=== PATIENT | male | born 1985 | race Caucasian/White ===

== ENCOUNTER 2022-10-07 12:50 | Emergency (ER) | payer BC ==
--- OUTSIDE RECORDS SUMMARY | 2022-10-07 12:54 | XMS REPORT | Continuity of Care Document ---
:1985 Author Organization [facility] t Address [address] [place] [address] Care Team Providers Name Role Phone DELORES GILMAN Primary Care Physician Unavailable HENNA MADRIGAL Attending Clinician Unavailable Henna Desir Attending Clinician [facility] Attending Clinician Unavailable KOFFI MONTES Attending Clinician Unavailable Payers Payer Name Policy Type Policy Number Effective Date Expiration Date S [place]a [place] [id number] 2020 00:00:00 OUT OF STATE Problems Condition Condition Condition Status Onset Resolution Last Treating Co mments Source Name Details Category Date Date Treatment Clinician Date No known No known Disease Unive rs active active ity of problems problems [place] [facility] Allergies, Adverse Reactions, Alerts Allergy Allergy Status Severity Reaction(s) Onset Inactive Treating Comm ents Source Name Type Date Date Clinician SULFA Drug Active Rash 2021-08 Univers (SULFONA Class 1-05 ity of MIDE 00:00: [place] ANTIBIOT 00 Medical ICS) Branch Sulfa Propensi Active Rash 2021-08 Univers (Sulfona ty to 1-05 ity of mide adverse 00:00: [place] Antibiot reaction 00 Medica l ics) s Branch SULFA Drug Active Low Rash 2016-08 Univers (SULFONA Class 0-10 ity of MIDE 00:00: [place] ANTIBIOT 00 Medical ICS) Branch NO KNOWN Drug Active Univers ALLERGIE Class ity of S [facility] Social History Social Habit Start Date Stop Date Quantity Comments Source Exposure to 2022-06-08 2022-06-18 Not sure [facility] SARS-CoV-2 (event) 00:00:00 11:20:00 Medica l Branch Sex Assigned At [address] [place] [facility]:00:[facility] Medical Branch Smoking Status Start Date Stop Date Source [facility] Medications Ordered Filled Start Stop Current Ordering Indication Dosage Frequency Signature Comments Components Source Medication Medication Date Date Medication? Clinician (SIG) Name Name No known 2021-08 No No known Unive rs medications 1-05 medication it y of 12:53: s [place] [facility] Immunizations Ordered Filled Immunization Date Status Comments Sourc e Immunization Name Name Td 2022-06-18 Completed [facility] 00:00:00 [facility] Vital Signs Vital Name Observation Time Observation Value Comments Source Systolic blood 2022-06-18 18:02:48 113 mm[Hg] Univer sity of pressure [facility] Diastolic blood 2022-06-18 18:02:48 99 mm[Hg] Unive rsity of pressure [facility] Heart rate 2022-06-18 18:02:48 93 /min [facility] Respiratory rate 2022-06-18 18:02:48 18 /min [facility] Oxygen saturation in 2022-06-18 18:02:48 97 /min [facility] Arterial blood by [facility] Pulse oximetry Branch Body temperature 2022-06-18 16:21:00 36.83 Angelina [facility] Body weight 2022-06-18 16:21:00 104.327 kg [facility] Procedures Procedure Date / Time Performed Performing Clinician Sourc e CONSENT/REFUSAL FOR 2022-06-18 16:15:47 [facility] AND Name Medical Branch TREATMENT NOTICE OF PRIVACY 2022-06-18 16:15:26 Doctor Unassigned, No Univ [facility] PRACTICES Name Medical Branch Encounters Start End Encounter Admission Attending Care Care Encounter Source Date/Time Date/Time Type Type Clinicians Facility Department ID 2022-06-18 2022-06-18 [facility] [id number] Univers 11:19:00 13:09:00 HENNA villatoro [facility] 2022-06-18 2022-06-18 [facility] [id number] Univers 11:19:00 13:09:00 Henna Farmer [facility] [id number] i [facility] [id number] [facility] [id number] [place] [id number] Branch 2022-06-18 2022-06-18 Emergency [facility] [id number] Univers 11:19:00 13:09:00 HENNA villatoro [facility] 2020-06-25 2020-06-25 Urgent Provider, [facility] [id number] 15:52:48 16:34:36 Care [facility] [id number] Care [place] [id number] Professio [phone] [address] 2020-06-25 2020-06-25 Outpatient R SIMON [facility] [id number] Univers 16:20:00 16:20:00 KOFFI villatoro [facility] Results This patient has no known results.
[2022-10-07] MEDS ORDERED: DICYCLOMINE HCL 20 MG/2 ML AMP IM ONE (13:36)
[2022-10-07] MEDS ORDERED: FAMOTIDINE 20 MG/2 ML VIAL IV ONE (13:36)
[2022-10-07] MEDS ORDERED: NA CHLORIDE 0.9% 1,000 ML ONE (13:36)
[2022-10-07] MEDS ORDERED: ONDANSETRON 4 MG/2 ML VIAL ONE (13:36)
[2022-10-07] MEDS ORDERED: DICYCLOMINE HCL 10 MG CAP ONE (14:10)
[2022-10-07 14:12] LABS: Absolute Lymphocytes (CBC) 1.5 K/uL (0.7-4.9); Hematocrit 40.3 % (39.6-49.0); Lymphocytes % 27.6 % (15.3-44.8); MCV 88.4 fL (80-100); MPV 7.8 fL (7.6-11.3); RBC Red Blood Cell Count 4.56 M/uL (4.33-5.43)
[2022-10-07 14:42] LABS: Albumin 3.7 g/dL (3.4-5.0); Bilirubin Total 1.7 mg/dL (0.2-1.0); Potassium 3.6 mmol/L (3.5-5.1); Protein, Total 7.7 g/dL (6.4-8.2)
--- NOTE | 2022-10-07 15:53 | RAD REPORT ---
EXAM DESCRIPTION: CT - Abdomen Pelvis W Contrast - 10/07/2022 2:52 pm CLINICAL HISTORY: Abdominal pain. Nausea and diarrhea. Vomiting . COMPARISON: None. TECHNIQUE: Biphasic, helical CT imaging of the abdomen and pelvis was performed following administra tion of 100 mL Isovue 300. Multiplanar reformats were generated and reviewed. All CT scans are performed using dose optimization technique as appropriate and may include automated exposure control or mA/KV adjustment according to patient size. FINDINGS: No suspicious findings in the lung bases. The liver demonstrates diffuse hepatic hypoattenuation suggesting steatosis. Spleen, and pancreas kenroy w no suspicious findings. Gallbladder and biliary tree are also without suspicious finding. Symmetric renal function is seen with no hydronephrosis or suspicious renal mass. Distal ileal fluid-filled nondistended bowel loops. Long segment mild mucosal hyperenhancement and sh ort-segment luminal attenuation along the terminal ileum near the ileocecal bowel. Intramural fat dep osition along the terminal ileum and proximal colon, a nonspecific finding which could relate to prio r inflammatory episodes. And the appendix is normal in appearance. No free air, free fluid or inflamm atory stranding. No hernia, mass or bulky lymphadenopathy. The urinary bladder is without significant finding. No suspicious bony findings. IMPRESSION: Long segment terminal ileum mild mucosal hyperenhancement. Short-segment luminal attenua tion near the ileocecal valve. Findings are nonspecific, and could relate to infectious or inflammato ry enteritis versus sequelae of inflammatory bowel disease. Please correlate clinically. Diffuse hepatic hypoattenuation suggesting steatosis.
[2022-10-07] MEDS ORDERED: KETOROLAC 30 MG/ML INJ ONE (17:06)
--- NOTE | 2022-10-07 17:17 | RAD REPORT ---
EXAM DESCRIPTION: US - Abdomen Exam Limited - 10/07/2022 1:36 pm CLINICAL HISTORY: Abdominal pain. COMPARISON: None. FINDINGS: The gallbladder wall is not thickened. A gallstone is not seen. Evaluation the gallbladder neck somewhat limited secondary to combination of body habitus and fatty i nfiltration of the liver The biliary tree is normal caliber. IMPRESSION: Unremarkable gallbladder ultrasound.
--- NOTE | 2022-10-07 17:23 | ER ---
Nurse's Notes [facility] Name: Jarrell Hernandez Age: 37 yrs Sex: Male : 1985 Arrival Date: 10/07/2022 Time: 12:53 Bed 13 Private MD: Saeed Farfan Diagnosis: Upper abdominal pain, unspecified Presentation: 10/07 12:55 Chief complaint: Upper abdominal pain and N/D x 3 days, vomit x 1 yesterday. Denies hb fever. Coronavirus screen: Client presents with at least one sign or symptom that may indicate coronavirus-19. Provider contacted for isolation considerations. Ebola Screen: No symptoms or risks identified at this time. Initial Sepsis Screen: Does the patient meet any 2 criteria? No. Patient's initial sepsis screen is negative. Does the patient have a suspected source of infection? No. Patient's initial sepsis screen is negative. Risk Assessment: Do you want to hurt yourself or someone else? Patient reports no desire to harm self or others. Onset of symptoms was October 04, 2022. 12:55 Method Of Arrival: Ambulatory hb 12:55 Acuity: NIK 3 hb Historical: - Allergies: 12:56 Sulfa (Sulfonamide Antibiotics); hb - Home Meds: 12:56 sertraline oral [Active]; allopurinol Oral [Active]; Omeprazole Oral [Active]; hb - PMHx: 12:56 Gout; hb 12:57 Hiatal Hernia; Gastric Ulcer; hb - PSHx: 12:56 None; hb - Immunization history:: Adult Immunizations up to date. - Social history:: Smoking status: Patient denies any tobacco usage or history of. Screenin:21 [facility] ED Fall Risk Assessment (Adult) History of falling in the last 3 months, db including since admission No falls in past 3 months (0 pts) Confusion or Disorientation No (0 pts) Intoxicated or Sedated No (0 pts) Impaired Gait No (0 pts) Mobility Assist Device Used No (0 pt) Altered Elimination No (0 pt) Score/Fall Risk Level 0 - 2 = Low Risk Oriented to surroundings, Maintained a safe environment, Educated pt \T\ family on fall prevention, incl call for assistance when getting out of bed. Abuse screen: Denies threats or abuse. Denies injuries from another. Nutritional screening: No deficits noted. Tuberculosis screening: No symptoms or risk factors identified. Assessment: 13:23 Reassessment: patient in ultrasound. db 14:00 Reassessment: Patient appears in no apparent distress at this time. Patient and/or db family updated on plan of care and expected duration. Pain level reassessed. Patient is alert, oriented x 3, equal unlabored respirations, skin warm/dry/pink. upper middle abdominal pain with nausea and vomiting. General: Appears in no apparent distress. comfortable, Behavior is calm, cooperative. Pain: Complains of pain in right upper quadrant and epigastric area. Neuro: Level of Consciousness is awake, alert, obeys commands, Oriented to person, place, time, situation, Speech is normal. Respiratory: Airway is patent Respiratory effort is even, unlabored, Respiratory pattern is regular, symmetrical. GI: Abdomen is flat, Bowel sounds present X 4 quads. Abd is soft Abdomen is tender to palpation in epigastric area. 15:00 Reassessment: Patient appears in no apparent distress at this time. Patient and/or db family updated on plan of care and expected duration. Pain level reassessed. Patient is alert, oriented x 3, equal unlabored respirations, skin warm/dry/pink. 16:29 Reassessment: Patient appears in no apparent distress at this time. Patient and/or db family updated on plan of care and expected duration. Pain level reassessed. Patient is alert, oriented x 3, equal unlabored respirations, skin warm/dry/pink. patient ambulatory to restroom. 17:57 Reassessment: Patient appears in no apparent distress at this time. Patient and/or db family updated on plan of care and expected duration. Pain level reassessed. Patient is alert, oriented x 3, equal unlabored respirations, skin warm/dry/pink. Patient states feeling better. Vital Signs: 12:55 BP 109 / 81; Pulse 75; Resp 18; Temp 97.9; Pulse Ox 100% on R/A; Weight 99.79 kg; hb Height 6 ft. (182.88 cm); Pain 7/10; 14:09 BP 109 / 78; Pulse 73; Resp 18 S; Pulse Ox 98% ; db 17:30 BP 117 / 54; Pulse 71; Resp 18; Temp 98(O); Pulse Ox 98% on R/A; db 12:55 Body Mass Index 29.84 (99.79 kg, 182.88 cm) hb ED Course: 12:53 Patient arrived in ED. mr 12:53 Saeed Farfan MD is Private Physician. mr 12:54 Dianne Joe FNP-C is [facility]. kb 12:54 Paulino Mcintyre MD is Attending Physician. kb 12:56 Triage completed. hb 12:56 Arm band placed on. hb 13:23 Adri Mijares, RN is Primary Nurse. db 13:38 Abdomen Limited US In Process Unspecified. EDMS 14:00 Inserted saline lock: 20 gauge in right antecubital area, using aseptic technique. db Blood collected. 14:21 Patient has correct armband on for positive identification. Bed in low position. Call db light in reach. Side rails up X 1. Pulse ox on. NIBP on. Warm blanket given. 14:53 CT Abd/Pelvis - IV Contrast Only In Process Unspecified. EDMS 17:57 No provider procedures requiring assistance completed. IV discontinued, intact, db bleeding controlled, No redness/swelling at site. Administered Medications: 14:05 Drug: NS 0.9% 1000 ml Route: IV; Rate: 1 bolus; Site: right antecubital; db 17:00 Follow up: Response: No adverse reaction; IV Status: Completed infusion; IV Intake: db 1000ml 14:05 Drug: Pepcid (famotidine) 20 mg Route: IVP; Site: right antecubital; db 17:00 Follow up: Response: No adverse reaction db 14:05 Drug: Zofran (Ondansetron) 4 mg Route: IVP; Site: right antecubital; db 17:00 Follow up: Response: No adverse reaction db 14:05 Drug: Bentyl (dicyclomine) 20 mg Route: PO; db 16:59 Follow up: Response: No adverse reaction db 17:06 Drug: Ketorolac 15 mg Route: IVP; Site: right antecubital; db 17:59 Follow up: Response: No adverse reaction db Medication: 17:57 VIS not applicable for this client. db Intake: 17:00 IV: 1000ml; Total: 1000ml. db Outcome: 17:23 Discharge ordered by . kb 17:57 Discharged to home ambulatory, with family. db 17:57 Condition: stable 17:57 Discharge instructions given to patient, family, Instructed on discharge instructions, follow up and referral plans. Prescriptions given X 2. 18:06 Patient left the ED. db Signatures: Dispatcher [employer] Dianne Gramajo, ALBER GIRARD-Lenka WolfeterEve, RN RN Adri Cortez RN RN db
--- NOTE | 2022-10-07 17:23 | EDPHYS ---
Physician Documentation [facility] Name: Jarrell Hernandez Age: 37 yrs Sex: Male : 1985 Arrival Date: 10/07/2022 Time: 12:53 Bed 13 Private MD: Saeed Farfan ED Physician Paulino Mcintyre HPI: 10/07 15:34 This 37 yrs old Male presents to ER via Ambulatory with complaints of Abdominal Pain. kb 15:34 The patient presents with abdominal pain in the upper abdomen. Onset: The kb symptoms/episode began/occurred 3 day(s) ago. The symptoms do not radiate. Associated signs and symptoms: Pertinent positives: nausea, vomiting, and diarrhea, Pertinent negatives: fever. The symptoms are described as constant. Modifying factors: The symptoms are alleviated by nothing, the symptoms are aggravated by nothing. Severity of pain: At its worst the pain was moderate in the emergency department the pain is unchanged. The patient has not experienced similar symptoms in the past. The patient has been recently seen by a physician: Dr. Leal in the office, earlier today, with similar presenting complaints, and was sent to the [facility] Emergency Department for further evaluation. Historical: - Allergies: 12:56 Sulfa (Sulfonamide Antibiotics); hb - Home Meds: 12:56 sertraline oral [Active]; allopurinol Oral [Active]; Omeprazole Oral [Active]; hb - PMHx: 12:56 Gout; hb 12:57 Hiatal Hernia; Gastric Ulcer; hb - PSHx: 12:56 None; hb - Immunization history:: Adult Immunizations up to date. - Social history:: Smoking status: Patient denies any tobacco usage or history of. ROS: 13:55 Constitutional: Negative for fever, chills, and weight loss. kb 13:55 Abdomen/GI: Positive for abdominal pain, nausea, vomiting, and diarrhea. 13:55 All other systems are negative. Exam: 13:55 Constitutional: This is a well developed, well nourished patient who is awake, alert, kb and in no acute distress. Head/Face: Normocephalic, atraumatic. ENT: Moist Mucous membranes Cardiovascular: Regular rate and rhythm with a normal S1 and S2. No gallops, murmurs, or rubs. No pulse deficits. Respiratory: Respirations even and unlabored. No increased work of breathing. Talking in full sentences Back: No spinal tenderness. No costovertebral tenderness. Full range of motion. Skin: Warm, dry with normal turgor. Normal color. MS/ Extremity: Pulses equal, no cyanosis. Neurovascular intact. Full, normal range of motion. Neuro: Awake and alert, GCS 15, oriented to person, place, time, and situation. Moves all extremities. Normal gait. Psych: Awake, alert, with orientation to person, place and time. Behavior, mood, and affect are within normal limits. 13:55 Abdomen/GI: Inspection: abdomen appears normal, Bowel sounds: normal, Palpation: soft, in all quadrants, moderate abdominal tenderness, in the epigastric area and right upper quadrant. Vital Signs: 12:55 BP 109 / 81; Pulse 75; Resp 18; Temp 97.9; Pulse Ox 100% on R/A; Weight 99.79 kg; hb Height 6 ft. (182.88 cm); Pain 7/10; 14:09 BP 109 / 78; Pulse 73; Resp 18 S; Pulse Ox 98% ; db 17:30 BP 117 / 54; Pulse 71; Resp 18; Temp 98(O); Pulse Ox 98% on R/A; db 12:55 Body Mass Index 29.84 (99.79 kg, 182.88 cm) hb MDM: 13:00 Patient medically screened. kb 15:21 Data reviewed: vital signs, nurses notes. kb 15:37 Differential diagnosis: cholecystitis, Cholelithiasis, gastritis, gastroesophageal kb reflux disease, non-specific abd pain, pancreatitis. Historians other than the Patient: Spouse/Significant Other: . 15:49 ED course: Patient is a 37-year-old male who presents for nausea and diarrhea with kb upper abdominal pain for 3 days, vomiting yesterday. Reports he was seen at Dr. Leal's office prior to arrival and given outpatient orders but was told to come to the ER to have them done more quickly. On exam patient has moderate tenderness to right upper quadrant and epigastric area. Nontoxic in appearance. Will obtain serum labs, CT scan (per Dr. Leal's orders), and ultrasound to rule out cholecystitis/cholelithiasis.. 17:22 Counseling: I had a detailed discussion with the patient and/or guardian regarding: the kb historical points, exam findings, and any diagnostic results supporting the discharge/admit diagnosis, lab results, radiology results, the need for outpatient follow up, a family practitioner, to return to the emergency department if symptoms worsen or persist or if there are any questions or concerns that arise at home. 10/07 13:01 Order name: CBC with Diff; Complete Time: 14:19 kb 10/07 13:01 Order name: CMP; Complete Time: 14:44 kb 10/07 13:01 Order name: Lipase; Complete Time: 14:44 kb 10/07 13:01 Order name: Abdomen Limited US; Complete Time: 17:18 kb 10/07 13:01 Order name: CT Abd/Pelvis - IV Contrast Only; Complete Time: 16:08 kb 10/07 13:01 Order name: IV Saline Lock; Complete Time: 14:14 kb 10/07 13:01 Order name: Labs collected and sent; Complete Time: 14:14 kb Administered Medications: 14:05 Drug: NS 0.9% 1000 ml Route: IV; Rate: 1 bolus; Site: right antecubital; db 17:00 Follow up: Response: No adverse reaction; IV Status: Completed infusion; IV Intake: db 1000ml 14:05 Drug: Pepcid (famotidine) 20 mg Route: IVP; Site: right antecubital; db 17:00 Follow up: Response: No adverse reaction db 14:05 Drug: Zofran (Ondansetron) 4 mg Route: IVP; Site: right antecubital; db 17:00 Follow up: Response: No adverse reaction db 14:05 Drug: Bentyl (dicyclomine) 20 mg Route: PO; db 16:59 Follow up: Response: No adverse reaction db 17:06 Drug: Ketorolac 15 mg Route: IVP; Site: right antecubital; db 17:59 Follow up: Response: No adverse reaction db Disposition Summary: 10/07/22 17:23 Discharge Ordered Location: Home kb Condition: Stable kb Diagnosis - Upper abdominal pain, unspecified kb Followup: kb - With: Emergency Department - When: As needed - Reason: Worsening of condition Followup: kb - With: Private Physician - When: 2 - 3 days - Reason: Recheck today's complaints, Continuance of care, Re-evaluation by your physician Discharge Instructions: - Discharge Summary Sheet kb - Abdominal Pain, Adult, [id number] kb Forms: - Medication Reconciliation Form kb - Thank You Letter kb - Antibiotic Education kb - Prescription Opioid Use kb Prescriptions: - Zofran 4 mg Oral Tablet - take 1 tablet by ORAL route every 6 hours As needed; 20 tablet; Refills: 0, kb Product Selection Permitted - dicyclomine 20 mg Oral Tablet - take 1 tablet by ORAL route 4 times per day As needed; 20 tablet; Refills: 0, kb Product Selection Permitted Signatures: Dispatcher [employer] EDDianne Vega, [employer] MA[employer]GER-C [employer] MANAGER-Eve Tao, RN RN Adri Mijares, RN RN db
[2022-10-07 19:07] VITALS: O2SAT 98
[2022-10-07 19:09] VITALS: BP 117/54; TEMP 98
== END 2022-10-07 18:06 | disposition home or self-care (01) ==
LOC: ER 12:50
DX: R10.11 Right upper quadrant pain (principal); Z88.2 Allergy status to sulfonamides
CPT/HCPCS: 96361; 85025; 36415; 83690; 80053; 74177; 76705; 96375; 96374; 99284; Q9967; J0500; J7030; J2405